=== PATIENT | female | born 1995 | race Caucasian/White ===

== ENCOUNTER 2017-03-14 15:55 | Inpatient (IN) | payer MEDICAID ==
[~2017-03-14] VITALS: Ht 172.7 cm; Wt 67.0 kg
--- NOTE | ~2017-03-14 | DS ---
PATIENT'S NAME: AKIRA MARTÍNEZ [facility] AGE: 21 Y [address] ROOM: [address] [address] LOCATION: [facility] [place] ADMIT DATE: 03/14/2017 Discharge Summary DISCHARGE DATE: 03/16/2017 FAMILY PHYSICIAN: Allie Garza APRN ATTENDING PHYSICIAN: Keri Corrigan PRIMARY DIAGNOSES: 1. Distal partial small bowel obstruction. 2. Obstipation. 3. Polysubstance use. 4. Anxiety. 5. Depression. OPERATIONS/PROCEDURES: None. HISTORY OF PRESENTING ILLNESS/REASON FOR ADMISSION: Please refer to the H and P dictated 03/14/2017. HOSPITAL COURSE: The patient was admitted to the hospital as noted above with a presumptive diagnosis of obstipation and distal mechanical small bowel obstruction. General Surgery had been contacted by telephone, but did not formally consult. The patient was placed on a bowel prep regimen with GoLYTELY. She was treated symptomatically and received some supportive cares with IV fluids. By hospital day 2, she had been stooling and symptoms were essentially relieved. She did go ahead and nearly complete (but did not complete) a GoLYTELY prep. She stooled over 15 times and her symptoms had essentially resolved at that point. She was placed on a mechanical soft diet and tolerated that well. By the 3rd hospital day, it was felt she would be stable enough for discharge to home with encouragement to observe, good bowel hygiene, and avoidance of illicit substances. DISCHARGE INSTRUCTIONS: 1. Diet: Regular as tolerated, high-fiber, encourage fluids. 2. Activity as tolerated. MEDICATIONS: 1. Citalopram 20 mg p.o. q.h.s. 2. Ritalin 10 mg p.o. daily. 3. Alprazolam 1 mg p.o. t.i.d. p.r.n. 4. Benadryl 50 mg p.o. b.i.d. p.r.n. 5. Trazodone 50 mg p.o. q.h.s. 6. Acetaminophen 650 mg p.o. q.6 h. p.r.n. pain or fever. PATIENT'S NAME: AKIRA MARTÍNEZ [facility] AGE: 21 Y [address] ROOM: [address] [address] LOCATION: [facility] [place] ADMIT DATE: 03/14/2017 Discharge Summary DISCHARGE DATE: 03/16/2017 FAMILY PHYSICIAN: Allie Garza APRN ATTENDING PHYSICIAN: Keri Corrigan 7. Colace 100 mg p.o. b.i.d. FOLLOW UP: She will follow up with primary care provider, Allie Garza APRN, in 3-5 days. CONDITION ON DISCHARGE: Fair. Total time spent on discharge process was 35 minutes. MIKE J MD CLAUDIO WILSON/edith /[id number] d: 03/17/17 0223 t: 03/24/17 0857, DISCHARGE SUMMARY
--- NOTE | ~2017-03-14 | HP ---
PATIENT'S NAME: AKIRA MARTÍNEZ [facility] AGE: 21 Y [address] ROOM: [address] [address] [place] [facility] [place] DATE: 03/14/2017 History & Physical DISCHARGE DATE: FAMILY PHYSICIAN: Allie Garza APRN ATTENDING PHYSICIAN: ELEUTERIO FELICIANO DATE OF SERVICE: CHIEF COMPLAINT: Right-sided lower abdominal pain. HISTORY OF PRESENT ILLNESS: This is a 21-year-old female with significant abdominal surgeries in the past, which includes a perforated small bowel, secondary to , thereafter she had had a colostomy put in place, and had a colostomy takedown August last year, and last admission for small bowel obstruction was October last year, during which time, she was taken care of by Dr. Roe. She comes in with sudden onset right-sided lower quadrant abdominal pain, which started last night and she describes it as on and off with a severity of 3/10. Given her prior symptom of abdominal pain last year in October, which ultimately resulted in small bowel obstruction, she got scared and so she decided to come into the ER for evaluation of the abdominal pain. She denies nausea and vomiting. When she got into the ER at [facility], she had a CT of the abdomen and pelvis done, which is reported as fecal impaction distal to the ileocolic anastomosis with a secondary mild obstruction of the small bowel above the anastomosis. She also did complain that upon arrival to the ER that the pain became constant. She denies fever. She also notes some nausea at this point in time. Denies headache. Also, notes some low back pain, secondary to the abdominal pain. She denies any urinary symptoms. She reported that she had a big moderate-sized bowel movement last night. She denies cough, denies chest pain. REVIEW OF SYSTEMS: The 13 elements of review of systems were asked and as documented in the HPI. The others are negative. PAST MEDICAL HISTORY: None except for small perforation in her bowel during and also had a colostomy and a colostomy takedown last year. PAST SURGICAL HISTORY: Includes laparoscopic cholecystectomy, , exploratory laparotomy with repair of enterotomy and diverting loop ileostomy, takedown of loop ileostomy. MEDICATIONS: PATIENT'S NAME: AKIRA MARTÍNEZ [facility] AGE: 21 Y [address] ROOM: [address] [place] [id number] LOC[place]: [facility] [place] DATE: 03/14/2017 History & Physical DISCHARGE DATE: FAMILY PHYSICIAN: Allie Garza APRN ATTENDING PHYSICIAN: ELEUTERIO FELICIANO Not on any medications. SOCIAL HISTORY: Lives with a boyfriend. She has a child. She stopped smoking last year. She smoked for 5 years 1 pack per day. Denies use of alcohol. Denies use of any illicit drugs. FAMILY HISTORY: Both parents are alive. Mother is 40, she has some mental problems. Father is 37 and has no medical problem. PHYSICAL EXAMINATION: VITAL SIGNS: In Med/Surgical Unit, blood pressure was 115/65, respiratory rate 16, temperature 97.2, pulse 76, and oxygen saturation 98% on room air. GENERAL: Reveals a young female who is alert, awake, oriented x3 in mild painful discomfort. NEUROLOGIC: Cranial nerve 2 through 12 are intact bilaterally. Sensory is intact bilaterally. Power is 5/5 in all the extremities. HEENT: Normocephalic, atraumatic. Pupils equal and reactive to light bilaterally. Pharynx is normal. Mucosa is moist. NECK: Supple. EARS: No obvious ear discharge or drainage. CARDIOVASCULAR: Normal S1, S2. Regular rate and rhythm. CHEST: Clear to auscultation bilaterally. ABDOMEN: Soft. Tenderness on the right lower quadrant. No rebound tenderness. Positive bowel sounds. EXTREMITIES: There is no joint swelling, erythema, or tenderness. SKIN: She has got multiple pins in the skin of her face, on her lower lip, and also in her tongue. LABORATORY DATA: None. ASSESSMENT AND PLAN: This is a 21-year-old female who comes in with abdominal pain. 1. Right lower quadrant abdominal pain, per CT imaging probably secondary to fecal impaction; however, the location is pretty strange. I did discuss with the general surgeon on-call, Dr. Morel as regarding whether it is okay for me to start the patient on GoLYTELY given the fact that she has a significant abdominal surgical history and he reports that given the location of the fecal impaction is pretty strange and he does not really see how the GoLYTELY is going to affect the patient and given the fact that last time the patient had any surgical procedure done was October last year, so the anastomosis should be pretty healed by now; so, he states that to go ahead and do whatever it is that we normally do for PATIENT'S NAME: AKIRA MARTÍNEZ [facility] AGE: 21 Y [address] ROOM: [place] [address] LOC[place]: [facility] [place] DATE: 03/14/2017 History & Physical DISCHARGE DATE: FAMILY PHYSICIAN: Allie Garza APRN ATTENDING PHYSICIAN: ELEUTERIO FELICIANO fecal impaction. 2. Fecal impaction with a secondary small-bowel obstruction. We will start the patient on GoLYTELY. If this is not tolerated by the patient, we will also try some rectal Dulcolax and some Fleet's enema. However, if the patient's pain worsens, we will get a KUB and we will most probably get an official General Surgery consult. The line of management was explained to the patient and the boyfriend who were present at bedside and they did not have any questions at this time. MD MARCO ANTONIO MORELOS/edith /[id number] D: [id number] T: [id number] HISTORY & PHYSICAL
--- NOTE | ~2017-03-14 | ER ---
PATIENT'S NAME: AKIRA MARTÍNEZ [facility] AGE: 21 Y [address] ROOM: [place] [address] [place] [facility] [place]: 03/14/2017 ER/Outpatient Report DISCHARGE DATE: FAMILY PHYSICIAN: Allie Garza APRN ATTENDING PHYSICIAN: ELEUTERIO FELICIANO Time of Evaluation: 1620 hours. CHIEF COMPLAINT: Abdominal pain. HISTORY OF PRESENT ILLNESS: The patient is a 21-year-old female, who approximately a year ago had a C- section in [place] and evidently at that time they had nicked her bowel. The patient ended up with a peritonitis, which required surgery, colostomy. The patient since her surgery has had 1 hospitalization for bowel obstruction related to adhesions. The patient today states she has had pain for about 48 hours; was seen by Dr. Buckner in [place]'s emergency room today. The patient had a lab work and x-rays, which were evidently normal except for a large amount of stool. The patient was somewhat uncomfortable after all those findings and decided to come to the emergency room here in [place]. MEDICAL HISTORY: ALLERGIES: NONE. SURGERIES: Include and exploratory laparotomy resulting in colostomy. SOCIAL HISTORY: Nonsmoker. Denies alcohol. REVIEW OF SYSTEMS: GENERAL: Today, has had no fever or chills. HEAD AND EENT: Negative. RESPIRATORY: No recent cough. GASTROINTESTINAL: Includes abdominal pain. The patient admits to a bowel movement yesterday, which is somewhat hard. She has had some nausea, no vomiting. GENITOURINARY: No burning or frequency. Had a negative test in [place] emergency room. PHYSICAL EXAMINATION: VITAL SIGNS: Temperature is 98.3, respiratory rate 16, pulse 82, and O2 PATIENT'S NAME: AKIRA MARTÍNEZ [facility] AGE: 21 Y [address] ROOM: [place] [address] [place] [facility] [place]: 03/14/2017 ER/Outpatient Report DISCHARGE DATE: FAMILY PHYSICIAN: Allie Garza APRN ATTENDING PHYSICIAN: ELEUTERIO FELICIANO saturations 97%. GENERAL APPEARANCE: Alert, well nourished, no obvious distress. HEAD AND EENT: Head, scalp were normal. Pupils were reactive to light. Sclerae were clear. Mouth: Oral membranes moist. Teeth in good repair. LUNGS: Sounded clear at the bases. ABDOMEN: Scars from her previous surgery were seen. Slightly distended. Bowel sounds were active. She had some general tenderness. LABORATORY DATA AND X-RAYS: Lab work from [place] was reviewed, all was essentially normal. CT of her abdomen and pelvis did show a dilated small bowel with signs of obstruction. There was a large amount of stool proximal to the obstruction. Otherwise, no free air. ASSESSMENT: Small bowel obstruction. PLAN: Dr. Liriano also examined and talked to the patient and recommended that she probably admit for observation. I did contact the Hospitalist Service who agreed to admit the patient. CHARLIE NGUYEN FOR ERON LIRIANO MD SWJ/modl /[id number] I have personally evalauted this patient. I agree with the assessment and plan as documented above. Eron Liriano MD d: 03/15/17 0349 t: 03/18/17 2226, OUTPATIENT REPORT
[~2017-03-14 15:55] MED LIST: ADVIL200 MG PO; COLACE100 MG PO; IBUPROFEN800 MG PO; KEFLEX500 MG PO; KLONOPIN0.5 MG PO; LEXAPRO10 MG PO; MIRALAX17 GM PO; NORCO 5-325 MG1 TAB PO; PERCOCET 5-3251 EACH PO; PRISTIQ50 MG PO; PROZAC20 MG; RITALIN 10MG10 MG PO; TYLENOL EXTRA500 MG PO; XANAX0.5 MG; XANAX1 MG PO
[2017-03-14] MEDS ORDERED: CELEXA20 MG PO (19:52)
[2017-03-14] MEDS ORDERED: DIPHENHYDRAMINE25 MG PO (19:54)
[2017-03-14] MEDS ORDERED: DESYREL50 MG PO (19:54)
[2017-03-14 21:47] LABS: AMPHETAMINE NEGATIVE (NEGATIVE); BARBITURATE NEGATIVE (NEGATIVE); COCAINE NEGATIVE (NEGATIVE); OPIATES POSITIVE (NEGATIVE)
--- NOTE | 2017-03-14 23:03 | NUR ---
THIS IS A 21 YEAR OLD FEMALE WHO HAS A HX OF BOWEL PERFORATION WITH COLOSTOMY, COLOSTOMY TAKE DOWN AND SBO. PT HAS HX OF DEPRESSION, PTSS, ANXIETY. PT CAME IN DUE TO INCREASING PAIN TO ABDOMEN-UMBILICUS PAIN THAT CAME ON ABRUPTLY THE EVENING OF 03/13 AND GOT WORSE TODAY. BOWEL SOUNDS ARE ACTIVE BUT X-RAY SHOWS BACKUP OF STOOL AT THE TRANSVERSE COLON. PT IS A/O AND IND IN ROOM.
--- NOTE | 2017-03-15 03:29 | NUR ---
Significant Event:THIS IS A 21 YEAR OLD FEMALE WHO HAS HX OF PREVIOUS SBO AFTER BOWEL SURGERYR/T NICKED BOWELS DURING A . PT C/O ABDOMINAL PAIN TO UBILICUS REGION. PT WAS GIVEN TYLENOL AT 2035. PT ALSO GOT A DUCOLAX SUPPOSITORY AT THAT TIME. PT HAD SOME C/O NAUSEA AND REGALIN DOSE X 1 GIVEN IM. PT STARTED ON GO-LYTELY, PT BEEN VERY SLOW AT DRINKING. BOWEL SOUNDS ACTIVE AND PT REPORTS HAVING LOTS OF ARIN. PT DID HAVE I SOFT MOD SIZED BM AFTER THE SUPPOSITORY BUT NO RESULTS FROM THE GO-LYTELY AT THIS TIME. PT HAS HAD MINIMAL C/O PAIN SINCE THE BM. Follow up:AGUSTOIUE W/ KULWANTLY AND MONITOR FOR BM OR N/V IN WHICH CASE STOP BOWEL PREP AND CONSULT SURGERY.
[2017-03-15 05:07] LABS: BASOPHIL % 0.5 %; EOSINOPHIL # 0.3 K/uL (0.0-0.5); EOSINOPHIL % 4.5 %; HEMATOCRIT 39.5 % (33.0-46.0); HEMOGLOBIN 13.1 g/dL (11.0-15.0); IMMATURE GRANULOCYTE % 0.2 %; LYMPHOCYTE # 1.6 K/uL (0.8-4.0); LYMPHOCYTE % 26.3 %; MCH 28.8 pg (27.0-34.0); MCHC 33.2 gm/dL (32.0-36.5); MCV 86.8 fl (83.0-98.0); MONOCYTE # 0.5 K/uL (0.0-1.0); MONOCYTE % 8.2 %; MPV 10.2 fl (9.4-12.4); NEUTROPHIL # (ANC) 3.7 K/uL (1.8-7.8); NEUTROPHIL % 60.3 %; NRBC % 0 /100WBC (0-0.00); PLATELET COUNT 183 K/uL (150-450); RBC 4.55 M/uL (3.50-5.00); RDW-CV 12.4 % (11.9-14.6); WBC 6.2 K/uL (4.0-11.0)
[2017-03-15 05:27] LABS: ANION GAP 10.8 (10.0-19.0); BLOOD UREA NITROGEN 5 mg/dL (6-24); CALCIUM 7.9 mg/dL (8.5-10.5); CHLORIDE 111 mMol/L (96-110); CO2 24 mMol/L (22-32); CREATININE 0.6 mg/dL (0.5-1.1); ESTIMATED GFR (MDRD EQUATION) > 60; POTASSIUM 3.8 mMol/L (3.7-5.1); SODIUM 142 mMol/L (135-145)
--- NOTE | 2017-03-15 12:15 | NUR ---
Significant Event:Xanax 1mg given po per pt request. Patient reports she takes xanax when she takes her ritalin. Patient calm at this time. Follow up:
--- NOTE | 2017-03-15 16:10 | NUR ---
Significant Event: Patient took approximately 600ml of golytely. Patient has had several loose stools. Ambulated in [facility]. Xanax at 1215. Patient takes xanax with ritalin. Minimal abdominal discomfort Follow up:
--- NOTE | 2017-03-16 03:40 | NUR ---
Significant Event: Pt starting having bowel movements and passing gas. MD notified and pt able to have mechanical soft diet. She did have two bowls of chicken noodle soup and tolerated well. Up ad vita in room and halls frequently. Gave xanax early in shift. Slept well. Prob discharge today. Follow up: Cont to monitor.
[2017-03-16 05:05] LABS: BASOPHIL % 0.3 %; EOSINOPHIL # 0.4 K/uL (0.0-0.5); EOSINOPHIL % 6.4 %; HEMATOCRIT 38.8 % (33.0-46.0); HEMOGLOBIN 12.8 g/dL (11.0-15.0); IMMATURE GRANULOCYTE % 0.2 %; LYMPHOCYTE # 2.7 K/uL (0.8-4.0); LYMPHOCYTE % 45.8 %; MCH 28.8 pg (27.0-34.0); MCV 87.2 fl (83.0-98.0); MONOCYTE # 0.6 K/uL (0.0-1.0); MONOCYTE % 9.2 %; MPV 10.5 fl (9.4-12.4); NEUTROPHIL # (ANC) 2.3 K/uL (1.8-7.8); NEUTROPHIL % 38.1 %; NRBC % 0 /100WBC (0-0.00); PLATELET COUNT 188 K/uL (150-450); RBC 4.45 M/uL (3.50-5.00); RDW-CV 12.2 % (11.9-14.6)
[2017-03-16] MEDS ORDERED: COLACE100 MG PO (09:57)
[2017-03-16] MEDS ORDERED: TYLENOL325 MG PO (09:57)
--- NOTE | 2017-03-16 12:05 | NUR ---
Patient educated on medications, followup appointments, abdominal pain and constipation management. Vital signs taken. IV discontinued. Patient taken by wheelchair with all personal belongings to main lobby for transport home.
== END 2017-03-16 11:00 | disposition disaster alternative care site (69) | DRG 392 ==
LOC: GMED 15:55 → GMSU 17:47
PROVIDERS: Family Medicine; ADMIT Hospitalist
DX: K59.00 Constipation, unspecified (principal); K56.60 Unspecified intestinal obstruction; F19.90 Other psychoactive substance use, unspecified, uncomplicated; F41.9 Anxiety disorder, unspecified; F32.9 Major depressive disorder, single episode, unspecified; Z93.3 Colostomy status; Z87.891 Personal history of nicotine dependence; Z90.49 Acquired absence of other specified parts of digestive tract; Z98.890 Other specified postprocedural states
CPT/HCPCS: J2270; J2405; J2765; J7030

== ENCOUNTER 2017-04-24 09:40 | Observation (INO) | payer MEDICAID ==
[~2017-04-24] VITALS: Ht 172.7 cm; Wt 65.9 kg
--- NOTE | ~2017-04-24 | DS ---
PATIENT'S NAME: AKIRA MARTÍNEZ [facility] AGE: 21 Y [address] ROOM: [address] [address] LOCATION: [facility] [place] ADMIT DATE: 04/24/2017 Discharge Summary DISCHARGE DATE: 04/25/2017 FAMILY PHYSICIAN: Allie Garza APRN ATTENDING PHYSICIAN: Tyrel Mccabe DISCHARGE DIAGNOSIS: Partial small-bowel obstruction. HOSPITAL COURSE: Please refer to admitting history and physical as dictated by Chris Harris APRN. Briefly, the patient was admitted to [facility] with abdominal pain, nausea, vomiting, and diarrhea. CTA scan of the abdomen showed partial obstruction versus ileus. General Surgery was consulted. They felt as though it did not really look like an obstructive picture, however, could possibly be gastroenteritis. She was placed on IV fluids and clear liquids. The following day, followup x-ray of the abdomen showed no definite findings of bowel obstruction. Her pain had subsequently improved. She had no further nausea or vomiting. She still had some episodes of diarrhea. Stool samples were negative. The patient was anxious to be discharged. Her diet was advanced to full liquid diet. Her vital signs were stable. It was felt as though she was stable to be discharged to home. The patient requested to follow along with Dr. Tye Dunlap. This appointment was arranged for Friday. LABORATORY DATA: Sodium 142, potassium 4.0, chloride 112, CO2 of 22, anion gap 12.0, BUN 10, creatinine 0.6, alkaline phosphatase 88, AST 15, ALT 20, phos 3.6, GFR greater than 60. WBCs 10.8, RBCs 4.92, hemoglobin 14.2, hematocrit 42.7, and platelets 196. UA: Leukocytes 25, nitrites negative, blood 10, wbc 0-2, rbc 0-2, epithelial 5-10, bacteria rare. Stool negative for C. diff. O and P negative. Normal fecal lizy. DISCHARGE INSTRUCTIONS: The patient will be discharged to home. Diet: As tolerated. Activity: As tolerated. Followup: With Dr. Tye Dunlap in 3-5 days. DISCHARGE MEDICATIONS: 1. Celexa 20 mg p.o. daily. PATIENT'S NAME: AKIRA MARTÍNEZ [facility] AGE: 21 Y [address] ROOM: [address] [address] LOCATION: [facility] [place] ADMIT DATE: 04/24/2017 Discharge Summary DISCHARGE DATE: 04/25/2017 FAMILY PHYSICIAN: Allie Garza APRN ATTENDING PHYSICIAN: Tyrel Mccabe 2. Xanax 1 mg p.o. 3 times daily p.r.n. 3. Ritalin 10 mg p.o. twice daily. 4. Benadryl 50 mg p.o. every 12 hours as needed for allergies. 5. Trazodone 50 mg p.o. q.h.s. 6. Tylenol 325 mg p.o. every 6 hours as needed for pain. 7. Colace 100 mg p.o. b.i.d., hold if loose stools. Thank you for allowing us to participate in the care of this patient as she had been hospitalized at [facility]. MARI ALTMAN APRN FOR MD AMADO QUINTANA/modl /[id number] d: 04/26/17 0304 t: 05/04/17 1313, DISCHARGE SUMMARY
--- NOTE | ~2017-04-24 | HP ---
PATIENT'S NAME: AKIRA MARTÍNEZ [facility] AGE: 21 Y [address] ROOM: [address] [address] LOCATION: [facility] [place] ADMIT DATE: 04/24/2017 History & Physical DISCHARGE DATE: FAMILY PHYSICIAN: Allie Garza APRN ATTENDING PHYSICIAN: Estelle PHILLIPS DATE OF SERVICE: 04/24/2017 REASON FOR ADMISSION: Nausea, vomiting, and abdominal pain with partial small bowel obstruction versus ileus. CHIEF COMPLAINT: Nausea with vomiting, diarrhea, and abdominal pain. HISTORY OF PRESENT ILLNESS: This is a 21-year-old female with a history of perforated bowel secondary to a section approximately 1 year ago. She underwent a diverting loop ileostomy. Then in July of 2016, she had a takedown with anastomosis. She was recently hospitalized for partial small-bowel obstruction from 03/14 to 03/16/2017 resolving with just supportive treatment. Today she woke up with nausea and vomiting, controllable diarrhea, and significant abdominal pain mostly in the right upper and lower quadrants, rated at 6 to 7/10. She only had relief when she defecated or vomited. She did not have any fevers. She denies any recent illnesses. She did get better with some supportive treatment in the emergency room. CT scan done there did find small bowel mildly dilated extending down to the anastomosis with concerns for a partial small bowel obstruction versus an ileus. She denies any recent illnesses. She denies any recent weight loss or weight gain or constitutional symptoms. She denies any history of headaches, lightheadedness, or dizziness. She denies any history of lung disease. She denies any shortness of breath or cough. She denies any chest pains or palpitations, or irregular heart rhythms or murmurs. Abdominal pertinent positives are listed above. She denies any melena in her stool. She denies any urinary complaints. She did state she had her menstrual cycle in the early part of March and has not had any complications with that. She denies being sexually active. She denies any extremity problems. She denies any weaknesses or gait instability. She does have a history of anxiety, well controlled on her home medicines which she has been taking up until today. REVIEW OF SYSTEMS: A 13-point review of systems was completed and was deemed negative other than mentioned above in the HPI. PATIENT'S NAME: AKIRA MARTÍNEZ [facility] AGE: 21 Y [address] ROOM: [place] [address] LOCATION: [facility] [place] ADMIT DATE: 04/24/2017 History & Physical DISCHARGE DATE: FAMILY PHYSICIAN: Allie Garza APRN ATTENDING PHYSICIAN: Estelle PHILLIPS PAST MEDICAL HISTORY: 1. Anxiety. 2. Depression. 3. History of small bowel perforation. PAST SURGICAL HISTORY: 1. section with perforated small bowel. 2. Laparoscopic cholecystectomy. 3. Exploratory laparotomy with repair of enterotomy with diverting loop ileostomy. 4. Takedown of loop ileostomy with anastomosis. SOCIAL HISTORY: The patient lives with her boyfriend and her daughter who is 1-year old- without any medical problems. She has a history of smoking, but denies any current use. She denies any alcohol use. She denies any illicit drug use. She works at [employer] in [place]. FAMILY HISTORY: Reviewed with the patient and deemed noncontributory. Both parents are living with no current active medical problems per review. ALLERGIES: NO KNOWN MEDICAL ALLERGIES. MEDICATIONS: 1. Citalopram 20 mg p.o. daily at bedtime. 2. Ritalin 10 mg 1 tablet p.o. twice daily. 3. Alprazolam 1 mg p.o. 3 times daily as needed (the patient states she takes a half a tablet every morning). 4. Generic stool softener 2 tablets by mouth every morning and 1 tablet by mouth every evening. PHYSICAL EXAMINATION: GENERAL: This is a 21-year-old, female, who looks and appears her stated age. HEENT: Head is normocephalic and atraumatic. Eyes; extraocular movements are intact. Her nose is midline and does reveal a small piercing on her right naris. She also has a piercing near her left brow. Her oropharynx is moist. Posterior pharynx does not reveal any redness or exudate. Her tongue is pierced. Her teeth have good dentition. NECK: Supple without any lymphadenopathy or thyromegaly. CHEST: Reveals equal symmetric expansion. Nonlabored breathing pattern. LUNGS: Clear throughout all hanson. PATIENT'S NAME: AKIRA MARTÍNEZ [facility] AGE: 21 Y [address] ROOM: [address] [address] LOCATION: [facility] [place] ADMIT DATE: 04/24/2017 History & Physical DISCHARGE DATE: FAMILY PHYSICIAN: Allie Garza APRN ATTENDING PHYSICIAN: Estelle PHILLIPS HEART: Regular rate and rhythm without any gallop or murmur. S1 and S2 present. She has 2+ peripheral pulses. No edema. ABDOMEN: Reveals a scar at midline umbilicus. She also has a scar on the right quadrant, both of which have healed well. Her bowel sounds are hypoactive with palpation. She has tenderness significant to the umbilical area, worse with deep palpation into the left upper quadrant. No organomegaly is appreciated. GENITOURINARY: Deferred. EXTREMITIES: Equal. There is no clubbing or cyanosis noted. She has good strength and range of motion in all 4 extremities. NEUROLOGIC: Cranial nerves 2 through 12 are intact. PSYCHIATRIC: Mood is normal. LABORATORY FINDINGS: A CBC shows a white blood cell count of 10.8, hemoglobin of 14.2, hematocrit of 42.7, and platelet count of 196,000. Chemistry panel shows a glucose of 96, BUN 10, creatinine 0.6, sodium 142, potassium of 4.0, chloride 112, CO2 of 22, calcium 8.2 with total protein of 6.8, albumin of 3.5, AST of 15, ALT of 20, alkaline phosphatase of 88, total bilirubin 0.6, anion gap of 12.0, and GFR greater than 60. Urinalysis shows yellow, 1+ turbid urine with specific gravity of 1.025, pH is 5.0, leukocytes of 25, nitrites negative, protein negative, glucose negative, ketones negative, urobilinogen normal, bilirubin negative, blood 10, white blood cells 0-2, red blood cells 0-2, epithelial 5- 10, and bacteria rare. Her amylase is 28. Her lipase is 81. Her hCG quantitative is negative at less than 1.0. Microbiology: A C. difficile test was negative. An O and P screening was negative. She did have a few white blood cells in her fecal material. An occult blood study was negative. RADIOLOGIC IMAGING: A CT of the abdomen and pelvis had shown ileocolic anastomosis in the right lower quadrant. There was some small bowel that was mildly dilated extending down to the anastomosis with partial obstruction versus ileus. IMPRESSION AND PLAN: 1. Partial small-bowel obstruction versus ileus. This is the patient with a significant abdominal history with nausea, vomiting, diarrhea, and abdominal pain who presents with the CT findings of concern for partial small bowel obstruction versus ileus. Surgery is being contacted from the emergency room and we will ask them for an official consultation. For now, we will keep her nothing by mouth and give her supportive cares with antiemetics and pain medicine. We will hydrate her with IV fluids and observe her response. Further laboratory values appear unrevealing for any other acute process. PATIENT'S NAME: AKIRA MARTÍNEZ [facility] AGE: 21 Y [address] ROOM: [place] [address] LOCATION: [facility] [place] ADMIT DATE: 04/24/2017 History & Physical DISCHARGE DATE: FAMILY PHYSICIAN: Allie Garza APRN ATTENDING PHYSICIAN: Estelle PHILLIPS 2. History of anxiety and depression. We will go ahead and resume her citalopram and Xanax as needed. 3. Deep venous thrombosis prophylaxis to be maintained with pneumatic compression devices. 4. Code Status: Full code status. The above line of management was discussed with the patient who stated complete understanding and in agreement. All questions were answered accordingly. Statements of understanding were given. DARWIN ESTRADA APRN, APRN FOR MD СВЕТЛАНА SALAS/edith /[id number] D: T: [id number] HISTORY & PHYSICAL
--- NOTE | ~2017-04-24 | ER ---
PATIENT'S NAME: AKIRA MARTÍNEZ [facility] AGE: 21 Y [address] ROOM: [place] [address] [place] [facility] [place]: 04/24/2017 ER/Outpatient Report DISCHARGE DATE: FAMILY PHYSICIAN: Allie Garza APRN ATTENDING PHYSICIAN: Estelle SARAH Time of Arrival: 0940 hours. Time of Evaluation: 1033 hours. IDENTIFICATION: A 21-year-old female. CHIEF COMPLAINT: Abdominal pain. HISTORY OF PRESENT ILLNESS: The patient developed right lower abdominal pain at approximately 6:00 a.m., associated with nausea and vomiting. She is not able to keep anything down. She has had watery stools x2 days 2 per day. Last bowel movement was this morning and was watery. No blood in her stools. No dark, tarry, or black stools. She has felt chilled, but no fever. Pertinent past medical history is that she had a perforated small bowel secondary to section 1 year ago. She had a colostomy and a colostomy takedown in August of last year, and she has been admitted x2 for small bowel obstruction, most recently in February. PAST MEDICAL HISTORY: ALLERGIES: NO KNOWN DRUG ALLERGIES. CURRENT MEDICATIONS: 1. Ritalin. 2. Xanax. MEDICAL PROBLEMS: Anxiety, depression, polysubstance abuse, and previous small bowel obstruction. PRIOR SURGERIES: section; exploratory laparotomy with oversew of the distal ilium perforation site with diverting loop ileostomy, temporary; incidental appendectomy; takedown of loop ileostomy with enteroenterostomy creation; and cholecystectomy. PATIENT'S NAME: AKIRA MARTÍNEZ [facility] AGE: 21 Y [address] ROOM: [address] [address] [place] [facility] [place]: 04/24/2017 ER/Outpatient Report DISCHARGE DATE: FAMILY PHYSICIAN: Allie Garza APRN ATTENDING PHYSICIAN: Estelle SARAH SOCIAL HISTORY: The patient lives in [place], [place]. Tobacco use, denies. Alcohol use, denies. Drug use, denies. REVIEW OF SYSTEMS: All systems reviewed and negative other than what is noted in the HPI. She is a G1 and P1 female. She had Depo-Provera in October. Her last menstrual period was in early March. Review of systems is otherwise negative other than what is noted in the HPI. PHYSICAL EXAMINATION: VITAL SIGNS: Height 5 feet 8 inches, weight 65 kg. Blood pressure 112/73, pulse 79, respirations 20, temperature 98.2, and saturations 96% on room air. GENERAL: A 21-year-old female, in moderate distress, 9/10 pain. HEENT: Head: Normocephalic, atraumatic. Ears: TMs translucent, both ears. Nose: Mucosa pink, no lesions. Mouth: No lesions. Pharynx benign. NECK: Supple. No lymphadenopathy. LUNGS: Clear to auscultation. No rhonchi, wheezes, or rales. HEART: Regular rate and rhythm. No murmur, rub, or gallop. ABDOMEN: Bowel sounds present. Soft, nondistended. Tender to palpation in the right lower abdomen. ABDOMEN: No rebound or guarding. SKIN: Ber[place], warm, and dry. No lesions or rashes noted. NEURO: Normal. LABORATORY DATA: Sodium 142, potassium 4.0, chloride 112, CO2 of 22, BUN 10, creatinine 0.6, blood sugar 96. Liver enzymes normal. Amylase 20, lipase 81. Hemoglobin 14.2, hematocrit 42.7, platelets 196, white count 10.8 with a normal differential. HCG less than 1. UA: Specific gravity 1.025, pH 5, 0 to 2 white cells, 0 to 2 red cells, 5 to 10 epithelial cells. Stool: Few white blood cells, negative occult blood. O and P screen are negative. C. diff is negative. CT scan abdomen and pelvis with IV contrast: Ileocolic anastomosis, right lower quadrant. Small bowel, mildly dilated, extending down to the anastomosis, partial obstruction versus ileus. EMERGENCY DEPARTMENT COURSE: The patient was given fentanyl for pain and Zofran for nausea. Her nausea has improved. Her pain improved from a 9 to a 4, but she continues to have pain on examination. IMPRESSION: 1. Partial small bowel obstruction. 2. Loose stools. Stool studies negative. PATIENT'S NAME: AKIRA MARTÍNEZ [facility] AGE: 21 Y [address] ROOM: [place] [address] [place] [facility] [place]: 04/24/2017 ER/Outpatient Report DISCHARGE DATE: FAMILY PHYSICIAN: Allie Garza APRN ATTENDING PHYSICIAN: Estelle SARAH PLAN: For admission per Dr. Sarah. Dr. Morel consulting. MD MAGDI KAUR/modl /[id number] d: 04/25/17 0044 t: 04/27/17 0700, OUTPATIENT REPORT
[~2017-04-24 09:40] MED LIST changes: +CELEXA20 MG PO; +DESYREL50 MG PO; +DIPHENHYDRAMINE25 MG PO; +TYLENOL325 MG PO
[2017-04-24 11:00] LABS: BASOPHIL % 0.3 %; EOSINOPHIL # 0.2 K/uL (0.0-0.5); EOSINOPHIL % 1.8 %; HEMATOCRIT 42.7 % (33.0-46.0); HEMOGLOBIN 14.2 g/dL (11.0-15.0); IMMATURE GRANULOCYTE % 0.3 %; LYMPHOCYTE # 0.8 K/uL (0.8-4.0); LYMPHOCYTE % 7.2 %; MCH 28.9 pg (27.0-34.0); MCHC 33.3 gm/dL (32.0-36.5); MCV 86.8 fl (83.0-98.0); MONOCYTE # 0.9 K/uL (0.0-1.0); MONOCYTE % 8.4 %; MPV 10.2 fl (9.4-12.4); NEUTROPHIL # (ANC) 8.8 K/uL (1.8-7.8); NRBC % 0 /100WBC (0-0.00); PLATELET COUNT 196 K/uL (150-450); RBC 4.92 M/uL (3.50-5.00); RDW-CV 12.5 % (11.9-14.6); WBC 10.8 K/uL (4.0-11.0)
[2017-04-24 11:16] LABS: ALBUMIN 3.5 gm/dL (3.5-5.0); ALK PHOS 88 IU/L (33-138); ALT 20 IU/L (12-78); AST 15 IU/L (10-40); BLOOD UREA NITROGEN 10 mg/dL (6-24); CALCIUM 8.2 mg/dL (8.5-10.5); CHLORIDE 112 mMol/L (96-110); CO2 22 mMol/L (22-32); CREATININE 0.6 mg/dL (0.5-1.1); ESTIMATED GFR (MDRD EQUATION) > 60; SODIUM 142 mMol/L (135-145); TOTAL PROTEIN 6.8 g/dL (6.0-8.4)
[2017-04-24 11:22] LABS: TOTAL BILIRUBIN 0.6 mg/dL (0.0-1.5)
[2017-04-24 11:49] LABS: BILIRUBIN URINE NEGATIVE (NEGATIVE); BLOOD URINE 10 /UL (NEGATIVE); GLUCOSE URINE NEGATIVE (NEGATIVE); KETONE URINE NEGATIVE (NEGATIVE); LEUKOCYTES URINE 25 /UL (NEGATIVE); NITRITE URINE NEGATIVE (NEGATIVE); PROTEIN URINE NEGATIVE (NEGATIVE); SPEC GRAVITY URINE 1.025 (1.003-1.035); UROBILINOGEN URINE NORMAL (NORMAL)
[2017-04-24 11:58] LABS: COLOR URINE YELLOW (YELLOW); TURBIDITY URINE 1+ (CLEAR)
[2017-04-24 12:01] LABS: RBC URINE 0-2 #/HPF (NEGATIVE); WBC URINE 0-2 #/HPF (NEGATIVE)
[2017-04-24 12:02] LABS: BACTERIA URINE RARE (NEGATIVE)
--- NOTE | 2017-04-24 17:19 | NUR ---
ADMISSION: Pt. was last at [facility] on 04/13 for constipation and stayed 3 days, no surgical intervention at that time, states they gave medications only. This AM, developed abdominal pain, diarrhea, and vomiting. Hx of , perf bowel, colostomy reversal. Has 1 year old child at home, lives with mother and siblings. Admitted from ER for possible bowel obstruction. Database I, VTE, and immunization screening completed. Report given to primary nurse.
--- NOTE | 2017-04-24 18:30 | NUR ---
Significant Event: Patient admitted to floor at 1500. Morphine and zofran given times one at 1730 with relief noted. Patient started on clear liquid diet and patient states that she is hungry. Patient stated that she did have a formed bowel movement this a.m. but then bowel movements became watery. Per E.R. report cdiff test ran and was negative. Patient does have IV fluids infusing at 125 ml/hour to patient's left posterior forearm. Follow up: Continue to monitor.
--- NOTE | 2017-04-25 02:21 | NUR ---
Significant Event: Patient alert and orineted X4. Up ad vita in room. Significant other helps with cares. Morphine X1 around 5, and zofran around 2219. Relief noted. Denies need for either at this time. Sig. other at bedside. Vitals stable and on room air. Clear liquid diet. Just taking sips. Wants to go home today. Passing gas. IV to L) forearm running NS at 125ml. Cooperative with cares. Follow up: Monitor pain
--- NOTE | 2017-04-25 11:43 | NUR ---
Introduced self and care management services to patient and mom in room. Pt lives with mom and toddler daughter in [place], they deny anticipating any dc planning needs right now. Criminal Research Specialist will follow and assist with dc planning as needs identified.
--- NOTE | 2017-04-25 12:29 | NUR ---
Significant Event: Patient up ad vita in room. Family up to visit and patient went for a walk and tolerated well. Dr. Juares and Dr. Roe both in to see patient and said patient could be discharged. Virtual nurse to process paperwork and review with patient. Patient had full liquids for lunch and tolerated well. Dismissal when paperwork done.
--- NOTE | 2017-04-25 13:01 | NUR ---
DISCHARGE: Pt. was explained discharge instructions and educated on bowel obstruction, when to call the physician. No new medications. All belongings were returned. Pt. verbalized understanding, no questions or concerns. IV removed by primary nurse. Taken to front door by aide and driven home by mother.
== END 2017-04-25 13:45 | disposition disaster alternative care site (69) ==
LOC: GMED 09:40 → GMSU 13:35
PROVIDERS: Family Medicine; ADMIT Internal Medicine
DX: K56.69 Other intestinal obstruction (principal); F41.9 Anxiety disorder, unspecified; F32.9 Major depressive disorder, single episode, unspecified; Z90.49 Acquired absence of other specified parts of digestive tract; Z87.891 Personal history of nicotine dependence; Z79.899 Other long term (current) drug therapy; Z98.890 Other specified postprocedural states
CPT/HCPCS: G0378; J2270; J2405; J3010; J7030; Q9967

== ENCOUNTER 2017-07-29 22:14 | Emergency (ER) | payer MEDICAID ==
--- NOTE | ~2017-07-29 | ER ---
PATIENT'S NAME: AKIRA MARTÍNEZ [facility] AGE: 22 Y [address] ROOM: [place] [address] LOCATION: ED ADMIT DATE: 07/29/2017 ER/Outpatient Report DISCHARGE DATE: FAMILY PHYSICIAN: Allie Garza APRN ATTENDING PHYSICIAN: Christian Sims Admission date and time documented on the medical record. I saw the patient at 2230 hours. CHIEF COMPLAINT: Abdominal pain. HISTORY OF PRESENT ILLNESS: The patient is a 22-year-old female who has had kind of generalized abdominal pain for about 2 weeks. She has had some nausea, vomiting. No diarrhea. She has not had a bowel movement for 2 days. Does have some dysuria. Has had some low-grade fever. She was started on Bactrim Double Strength b.i.d. yesterday for UTI. The patient has had multiple surgeries on her abdomen following a perforated bowel, with a . Pain is sharp, intermittent. No chest pain, shortness of breath. No back pain. Does have a generalized headache. No eyes, ears, nose, throat, neck, or spine pain. No lightheadedness, dizziness, syncope, or near-syncope. No fall or trauma. No recent cold, coughs, flus, chills, or sweats other than the UTI. No joint or muscle swelling, redness, or pain. No skin eruptions or rash. Does have a history of anxiety and depression. No psychosis. No neuro changes or endocrine problems. HOME MEDICATIONS: See attached medication list. ALLERGIES: NONE. SOCIAL HISTORY: Nonsmoker and nondrinker. SIGNIFICANT PAST MEDICAL HISTORY: Anxiety, depression, polysubstance abuse, small bowel obstruction, bowel perforation, and septic shock. OPERATIONS: , exploratory laparotomy with oversew of distal ileum perforation site with diverting ileostomy, appendectomy, cholecystectomy, takedown of loop ileostomy with enteroenterostomy creation. PATIENT'S NAME: AKIRA MARTÍNEZ [facility] AGE: 22 Y [address] ROOM: [place] [address] LOCATION: ED ADMIT DATE: 07/29/2017 ER/Outpatient Report DISCHARGE DATE: FAMILY PHYSICIAN: Allie Garza APRN ATTENDING PHYSICIAN: Christian Sims REVIEW OF SYSTEMS: All systems reviewed by me are negative with the exception of those discussed in the history of present illness. PHYSICAL EXAMINATION: VITAL SIGNS: Temperature 99.4, pulse 85, respiratory rate 16, blood pressure 114/58, O2 saturation on room air is 97%. HEENT: Head, normocephalic. Eyes, ears, nose, and throat; clear. Mucous membranes moist. NECK: Negative. SPINE: Negative. LUNGS: Clear. Good air flow. HEART: Regular. Pulses are palpable. ABDOMEN: Soft, nondistended. Generalized tenderness. Bowel tones present. No organomegaly or abnormal mass palpable. No CVA tenderness. EXTREMITIES: Intact. NEUROVASCULAR: Intact. SKIN: Clear. No skin eruptions or rash. LABORATORY DATA AND X-RAYS: Three-way abdominal x-rays showed no perforation, obstruction, or acute lung infiltrate. CT scan of the abdomen showed no obstruction, did have some reactive mesenteric lymph nodes that have been unchanged from previous CT scans, there is a left ovarian cyst. No free air or free fluid. No other solid organ abnormalities. CT scan was read by Radiology, see dictated transcribed report. I will have Radiology review her plain film. Laboratory: Urine was clear. Urine test was negative. Procalcitonin was less than 0.05. Lactate was 0.6. White count is 5500, 46 segs, 39 lymphs, 11 monos, 3 eos, 1 baso, hemoglobin is 13 with hematocrit 37.9, platelet count is 190,000. CMS was normal except for a low potassium of 3.3. Low anion gap of 9.3. Low calcium of 8.2. Amylase and lipase were normal. CRP was less than 0.29. EMERGENCY DEPARTMENT COURSE: Did give the patient IV normal saline fluids. Zofran for nausea, vomiting. Dilaudid for pain. IMPRESSION: 1. Generalized abdominal pain, etiology uncertain. CT scan was essentially normal except for a left ovarian cyst and unchanged reactive mesenteric lymph nodes. She had no bowel obstruction, complete or partial. No free air or free fluid. PATIENT'S NAME: AKIRA MARTÍNEZ [facility] AGE: 22 Y [address] ROOM: [place] [address] LOCATION: [facility] ADMIT DATE: 07/29/2017 ER/Outpatient Report DISCHARGE DATE: FAMILY PHYSICIAN: Young, Allie M [employer] ATTENDING PHYSICIAN: Christian Sims 2. Headache. 3. Anxiety. 4. Depression. PLAN: The patient dismissed home. Observation. Activity as tolerated. Fluids, diet as tolerated. Finish out antibiotics. Continue present home medications and care. Tramadol 50 mg 1 every 6 hours as needed for pain, #30. Follow up with the personal physician as needed. Discussion ensued with the patient concerning my findings and recommendations, she understands. MD KIRBY PULLIAM/modl /[id number] d: 07/30/174 t: 07/30/17 1820, OUTPATIENT REPORT
[2017-07-29 23:07] LABS: BASOPHIL % 0.5 %; EOSINOPHIL # 0.1 K/uL (0.0-0.5); EOSINOPHIL % 2.5 %; HEMATOCRIT 37.9 % (33.0-46.0); IMMATURE GRANULOCYTE % 0.2 %; LYMPHOCYTE # 2.2 K/uL (0.8-4.0); LYMPHOCYTE % 39.3 %; MCH 30.4 pg (27.0-34.0); MCHC 34.3 gm/dL (32.0-36.5); MCV 88.6 fl (83.0-98.0); MONOCYTE # 0.6 K/uL (0.0-1.0); MONOCYTE % 11.3 %; MPV 10.6 fl (9.4-12.4); NEUTROPHIL # (ANC) 2.5 K/uL (1.8-7.8); NEUTROPHIL % 46.2 %; NRBC % 0 /100WBC (0-0.00); PLATELET COUNT 190 K/uL (150-450); RBC 4.28 M/uL (3.50-5.00); WBC 5.5 K/uL (4.0-11.0)
[2017-07-29 23:25] LABS: ALBUMIN 3.5 gm/dL (3.5-5.0); ALK PHOS 74 IU/L (33-138); ALT 19 IU/L (12-78); ANION GAP 9.3 (10.0-19.0); AST 17 IU/L (10-40); BLOOD UREA NITROGEN 6 mg/dL (6-24); CALCIUM 8.2 mg/dL (8.5-10.5); CHLORIDE 109 mMol/L (96-110); CO2 24 mMol/L (22-32); CREATININE 0.6 mg/dL (0.5-1.1); POTASSIUM 3.3 mMol/L (3.7-5.1); SODIUM 139 mMol/L (135-145); TOTAL BILIRUBIN 0.8 mg/dL (0.0-1.5); TOTAL PROTEIN 6.6 g/dL (6.0-8.4)
[2017-07-30 00:40] LABS: BILIRUBIN URINE NEGATIVE (NEGATIVE); BLOOD URINE NEGATIVE /UL (NEGATIVE); COLOR URINE YELLOW (YELLOW); GLUCOSE URINE NEGATIVE (NEGATIVE); KETONE URINE 15 mg/dL (NEGATIVE); LEUKOCYTES URINE NEGATIVE /UL (NEGATIVE); NITRITE URINE NEGATIVE (NEGATIVE); PROTEIN URINE NEGATIVE (NEGATIVE); TURBIDITY URINE CLEAR (CLEAR); UROBILINOGEN URINE NORMAL (NORMAL)
== END 2017-07-30 03:12 | disposition disaster alternative care site (69) ==
LOC: GMED 22:14
PROVIDERS: Emergency Medicine
DX: N83.202 Unspecified ovarian cyst, left side (principal); R51 Headache; F41.9 Anxiety disorder, unspecified; F32.9 Major depressive disorder, single episode, unspecified; Z90.49 Acquired absence of other specified parts of digestive tract; Z98.890 Other specified postprocedural states; Z79.1 Long term (current) use of non-steroidal anti-inflammatories (NSAID); Z79.899 Other long term (current) drug therapy
CPT/HCPCS: J1170; J2405; J7030; Q9967